=== PATIENT | female | born 1985 | race Caucasian/White ===

== ENCOUNTER 2022-04-01 11:50 | Emergency (ER) | payer OTHER ==
[~2022-04-01] VITALS: Ht 162.6 cm; Wt 81.8 kg
[2022-04-01 11:52] VITALS: BP 186/109
== END 2022-04-01 14:25 | disposition home or self-care (01) ==
LOC: M ED 11:50
DX: U07.1 COVID-19 (principal)

== ENCOUNTER → 2022-05-21 | Outpatient (CLI) | payer OTHER | LOC: M RAD 18:09 | PROVIDERS: ATTEND Otolaryngology | DX: G50.1 Atypical facial pain (principal) ==